=== PATIENT | female | born 1985 | race African-American/Black ===

== ENCOUNTER 2023-01-29 06:50 | Inpatient (IN) | payer BC, OTHER ==
[2023-01-29 08:10] VITALS: BMI 35.4
[2023-01-29] MEDS: ELECTROLYTE-148 SOLN 1,000 ML IV SCH ×3 (08:15→19:20)
[2023-01-29] MEDS ORDERED: AMPICILLIN SODIUM 2 GM VIAL ONE (08:28)
[2023-01-29] MEDS ORDERED: OXYTOCIN 30 UNITS in 0.9% NS 30 UNIT/500 ML INFUS.BAG IVPB ONE (08:29)
[2023-01-29] MEDS ORDERED: OXYTOCIN 30 UNITS in 0.9% NS 30 UNIT/500 ML INFUS.BAG IVPB SCH (09:00)
[2023-01-29] MEDS ORDERED: AMPICILLIN - 2 GM in SODIUM CHLORIDE 100 ML IVPB ONE (09:00)
[2023-01-29] MEDS ORDERED: AMPICILLIN SODIUM 1 GM VIAL ONE ×3 (12:26→21:15)
[2023-01-29] MEDS: AMPICILLIN - 1 GM in SODIUM CHLORIDE 100 ML IVPB SCH ×3 (12:30→21:10)
[2023-01-29] MEDS ORDERED: FENTANYL/BUPIVACAINE/NS/PF - PCEA - 50 ML DISP.SYRIN EP ONE ×2 (14:31→19:46)
[2023-01-29] MEDS ORDERED: LIDO 2%/EPI 1:200000 PRESRVFRE (20 ML SDVIAL) ONE (14:38)
[2023-01-29] MEDS ORDERED: BUPIVACAINE HCL/PF 0.25% (2.5MG/ML) 10 ML VIAL ONE ×2 (14:38→21:25)
[2023-01-29] MEDS: FENTANYL/BUPIVACAINE/NS/PF - PCEA - 50 ML DISP.SYRIN EP SCH (15:00)
[2023-01-29] MEDS ORDERED: NALOXONE HCL 0.4 MG/ML VIAL IVPUSH PRN (15:15)
[2023-01-29] MEDS ORDERED: ACETAMINOPHEN 325 MG TABLET (FP) ONE (22:54)
[2023-01-29] MEDS ORDERED: ACETAMINOPHEN 325 MG TABLET (FP) PO ONE (23:00)
[2023-01-29] MEDS ORDERED: LIDOCAINE HCL 1% PRESERVATIVE FREE - 30ML VIAL ONE (23:03)
[2023-01-29] MEDS ORDERED: OXYTOCIN 20 UNITS in 0.9% NS 20 UNIT/1,000 ML INFUS.BAG IV ONE (23:03)
[2023-01-29] MEDS ORDERED: OXYTOCIN 20 UNITS in 0.9% NS 20 UNIT/1,000 ML INFUS.BAG IV SCH (23:45)
[2023-01-29] MEDS ORDERED: WITCH HAZEL 50% (TUCKS) 40 PAD/JAR PAD TP PRN (23:57)
[2023-01-29] MEDS ORDERED: oxyCODONE HCL 5 MG TABLET PO PRN (23:57)
[2023-01-29] MEDS ORDERED: BISACODYL 10 MG SUPP.RECT RC PRN (23:57)
[2023-01-29] MEDS ORDERED: METHYLERGONOVINE MALEATE 0.2 MG/1 ML AMP IM PRN (23:57)
[2023-01-29] MEDS ORDERED: BENZOCAINE 28 GM HEMORRHOIDAL OINTMENT TP PRN (23:57)
[2023-01-29] MEDS ORDERED: BENZOCAINE 20% 57 GM BOTTLE TP PRN (23:57)
[2023-01-30 00:02] LABS: CORD BASE EXCESS -3.5 mmol/L (0-2); CORD HCO3 22.4 mmHg (20-29); CORD pH 7.334 (7.14-7.44)
[2023-01-30 00:03] LABS: CORD PCO2 44.4 mmHg (30-78); CORD pH 7.332 (7.14-7.44)
[2023-01-30] MEDS: IBUPROFEN 600 MG TABLET (FP) PO PRN ×4 (01:15→21:16)
[2023-01-30] MEDS ORDERED: IBUPROFEN 600 MG TABLET (FP) PO ONE (01:18)
[2023-01-30] MEDS: ACETAMINOPHEN 325 MG TABLET (FP) PO PRN ×2 (02:43→12:53)
[2023-01-30 09:07] LABS: BASO % 0.1 % (0-2.0); EOS % 0.1 % (0-4.5); HEMATOCRIT 30.1 % (32.4-45.2); HEMOGLOBIN 10.2 GM/dL (10.7-15.3); LYMPH % 8.8 % (8-40); MCH 26.8 pg (25.7-33.7); MCHC 33.9 g/dl (32.0-36.0); MEAN CELL VOLUME 79.1 fl (80-96); MEAN PLT VOLUME 7.2 fl (7.5-11.1); MONO % 5.4 % (3.8-10.2); NEUT % 85.6 % (42.8-82.8); PLATELET COUNT 266 10^3/uL (134-434); RBC 3.81 M/mm3 (3.60-5.2); WHITE BLOOD COUNT 16.6 K/mm3 (4.0-10.0)
[2023-01-30] MEDS: PRENATAL VITAMINS W/ FOLIC ACID TABLET (FP) PO SCH (10:09)
[2023-01-30] MEDS: FERROUS SO4 325 MG TABLET (FP) PO SCH ×3 (10:09→17:08)
[2023-01-30 21:22] VITALS: RESP 18
[2023-01-30] MEDS ORDERED: SENNOSIDES/DOCUSATE COMBO (SENNA PLUS) TABLET (UD) PO PRN (22:00)
[2023-01-30] MEDS: FENTANYL/BUPIVACAINE/NS/PF - PCEA - 50 ML DISP.SYRIN EP SCH (23:12)
[2023-01-31] MEDS: IBUPROFEN 600 MG TABLET (FP) PO PRN (06:11)
[2023-01-31] MEDS: FERROUS SO4 325 MG TABLET (FP) PO SCH (09:00)
[2023-01-31] MEDS: ACETAMINOPHEN 325 MG TABLET (FP) PO PRN (09:15)
[2023-01-31] MEDS: PRENATAL VITAMINS W/ FOLIC ACID TABLET (FP) PO SCH (09:15)
[2023-01-31 10:25] VITALS: BP 117/65; PULSE 74; TEMP 97.7
== END 2023-01-31 13:40 | disposition home or self-care (01) | DRG 807 ==
LOC: JLDR 06:50 → J3W 01-30 01:36
PROVIDERS: ADMIT Obstetrics & Gynecology; ATTEND Obstetrics & Gynecology
PROC: 10E0XZZ Delivery of Products of Conception, External Approach (ICD-10-PCS; principal; 2023-01-29)
PROC: 0KQM0ZZ Repair Perineum Muscle, Open Approach (ICD-10-PCS; 2023-01-29)
DX: O99.824 Streptococcus B carrier state complicating childbirth (principal); Z37.0 Single live birth; O70.1 Second degree perineal laceration during delivery; Z3A.39 39 weeks gestation of pregnancy
CPT/HCPCS: 36415; 36600; 80053; 82803; 85025; 85027; 85610; 85730; 86780; 86850; 86900; 86901; 87389; C9803-CS; U0003; U0005